=== PATIENT | female | born 1980 | race Caucasian/White ===

== ENCOUNTER 2024-08-01 17:22 | Emergency (ER) | payer OTHER, SELFPAY ==
[2024-08-01 17:31] VITALS: BP 148/87; PULSE 122; RESP 20; TEMP 38.1; O2SAT 97; BMI 27.3
--- NOTE | 2024-08-01 17:53 | DI.RAD.S_ITS ---
PROCEDURE: XR CHEST 2V INDICATIONS: cough fever TECHNIQUE: 2 views of the chest were acquired. COMPARISON: None. FINDINGS: Surgical changes and devices: None. Lungs and pleura: Lungs are clear. No pleural effusions or pneumothorax. Mediastinum: Mediastinal contours are normal. Heart size is normal. Bones and chest wall: No suspicious bony abnormalities. Soft tissues appear unremarkable. IMPRESSION: No acute cardiopulmonary abnormality is seen. Approved by: Lv Tam M.D. on 08/01/2024 at 18:18
[2024-08-01 18:00] VITALS: TEMP 38.1
[2024-08-01] MEDS: ACETAMINOPHEN 325 MG TABLET 975 MG PO (18:00)
[2024-08-01 18:09] VITALS: BP 136/82; PULSE 104; RESP 18; TEMP 36.7; O2SAT 97
--- NOTE | 2024-08-01 18:14 | ED_ITS ---
HPI - URI/Sore Throat <Deanna Rebolledo PA-C - Last Filed: 08/01/24 20:25> General Chief Complaint: Upper Respiratory Symptoms Stated Complaint: 102.9 fever, chills, dry cough, dizziness, rpd HB Time Seen by Provider: 08/01/24 17:52 Source: patient Mode of arrival: Wheelchair History of Present Illness HPI Narrative: Ms. Gallardo is a pleasant 43-year-old female with no reported past medical history who presents to the emergency department for cough, fevers, chills, body aches x3 days. Patient was recently traveling to [facility]. On she developed headache, fevers and chills and a sore throat. The sore throat has since resolved but now she has having an extremely dry frequent cough. She was up all night coughing. She went to the walk-in clinic as soon as she got back home to [place] and they sent her to the emergency department after giving her ibuprofen as she was tachycardic and had a fever. This time she states that she is feeling better, body aches improving, fever broke. She denies any chest pain, shortness of breath, difficulty with a deep breath, phlegm production, abdominal pain, nausea, vomiting, diarrhea, dysuria. Related Data Previous Rx's Medication Instructions Recorded benzonatate 200 mg capsule 200 mg PO BID-TID PRN cough #20 08/01/24 caps Allergies Allergy/AdvReac Type Severity Reaction Status Date / Time Penicillins Allergy Anaphylaxis Verified 08/01/24 17:31 Review of Systems <Deanna Rebolledo PA-C - Last Filed: 08/01/24 20:25> Review of Systems ROS Unobtainable: All systems reviewed & are unremarkable except as noted in HPI and below Patient History <Deanna Rebolledo PA-C - Last Filed: 08/01/24 20:25> Social History Smoking Status: Never smoker Smoking Status: Never smoker Exam <Deanna Rebolledo PA-C - Last Filed: 08/01/24 20:25> Narrative Exam Narrative: GENERAL: 43 year old patient appears stated age. Well-developed patient, in no acute distress. HEAD: Atraumatic. Normocephalic. EYES: PERRL. Extraocular motions intact. No scleral icterus. No injection or drainage. ENT: Clear ear canals and TMs bilaterally, no mastoid tenderness. Nose without bleeding, purulent drainage. Throat without erythema, tonsillar hypertrophy or exudate. Airway patent. NECK: Trachea midline. Cervical ROM intact. CARDIOVASCULAR: Regular rate and rhythm. RESPIRATORY: ?Occasional dry cough. Nonlabored respirations. ?Speaking in clear, full sentences. ?Clear to auscultation. Breath sounds equal bilaterally. No wheezes, rales, or rhonchi. ? GASTROINTESTINAL: Abdomen soft, non-tender, nondistended. EXTREMITIES: No edema or joint tenderness. NEURO: AOx3. ?Clear speech. ?Moves all 4 extremities appropriately. SKIN: No rash or erythema of visible areas Initial Vital Signs Initial Vital Signs: Vital Signs Temperature 100.6 F H 08/01/24 17:31 Pulse Rate 122 H 08/01/24 17:31 Respiratory Rate 20 08/01/24 17:31 Blood Pressure 148/87 H 08/01/24 17:31 Pulse Oximetry 97 08/01/24 17:31 Oxygen Delivery Method Room Air 08/01/24 17:31 <Bruno Tabares MD - Last Filed: 08/02/24 02:51> Initial Vital Signs Initial Vital Signs: Vital Signs Temperature 100.6 F H 08/01/24 17:31 Pulse Rate 122 H 08/01/24 17:31 Respiratory Rate 20 08/01/24 17:31 Blood Pressure 148/87 H 08/01/24 17:31 Pulse Oximetry 97 08/01/24 17:31 Oxygen Delivery Method Room Air 08/01/24 17:31 Course <Deanna Rebolledo PA-C - Last Filed: 08/01/24 20:25> Orders Ordered: ED Orders 08/01/24 17:53 XR chest 2V Stat Discontinued Medications Acetaminophen (Acetaminophen 325 Mg Tablet) 975 mg PO NOW ONE Stop: 08/01/24 17:54 Last Admin: 08/01/24 18:00 Dose: 975 mg Documented By: ELVER Benzonatate (Benzonatate 100 Mg Capsule) 200 mg PO NOW ONE Stop: 08/01/24 19:43 Last Admin: 08/01/24 19:46 Dose: 200 mg Documented By: ELVER Sodium Chloride (Normal Saline 0.9%) 1,000 mls @ 1,000 mls/hr IV BOLUS ONE Stop: 08/01/24 18:52 Last Admin: 08/01/24 18:31 Dose: Not Given Documented By: ELVER Vital Signs Vital signs: Vital Signs - 8 hr 08/01/24 19:15 Temperature 98.6 F <Bruno Tabares MD - Last Filed: 08/02/24 02:51> Orders Ordered: ED Orders 08/01/24 17:53 XR chest 2V Stat Discontinued Medications Acetaminophen (Acetaminophen 325 Mg Tablet) 975 mg PO NOW ONE Stop: 08/01/24 17:54 Last Admin: 08/01/24 18:00 Dose: 975 mg Documented By: ELVER Benzonatate (Benzonatate 100 Mg Capsule) 200 mg PO NOW ONE Stop: 08/01/24 19:43 Last Admin: 08/01/24 19:46 Dose: 200 mg Documented By: ELVER Sodium Chloride (Normal Saline 0.9%) 1,000 mls @ 1,000 mls/hr IV BOLUS ONE Stop: 08/01/24 18:52 Last Admin: 08/01/24 18:31 Dose: Not Given Documented By: ELVER Vital Signs Vital signs: Vital Signs - 8 hr 08/01/24 19:15 Temperature 98.6 F MDM - URI/Sore Throat <Deanna Rebolledo PA-C - Last Filed: 08/01/24 20:25> Medical Records Attestation: I reviewed the patient's medical records. Medical records narrative: Patient presented to the walk-in clinic today but was sent due to elevated heart rate and fever. Lab Data Labs: Lab Results 08/01/24 Range/Units 17:37 SARS-CoV-2 (PCR) Negative (Negative) Influenza A (RT-PCR) Flu a positive H (NEGATIVE) Influenza B (RT-PCR) Flu b negative (NEGATIVE) RSV (PCR) Negative (Negative) Imaging Data Chest x-ray: Radiologist's Impression: PROCEDURE: XR CHEST 2V INDICATIONS: cough fever TECHNIQUE: 2 views of the chest were acquired. COMPARISON: None. FINDINGS: Surgical changes and devices: None. Lungs and pleura: Lungs are clear. No pleural effusions or pneumothorax. Mediastinum: Mediastinal contours are normal. Heart size is normal. Bones and chest wall: No suspicious bony abnormalities. Soft tissues appear unremarkable. IMPRESSION: No acute cardiopulmonary abnormality is seen. MDM Narrative Medical decision making narrative: 43-year-old female with no reported past medical history who presents to the emergency department for cough, fevers, chills, body aches x3 days. She initially went to the walk-in clinic but was sent to the ER due to elevated heart rate and temperature. She did receive a dose of ibuprofen at the walk-in clinic before getting to the emergency department. Differential diagnosis includes but isn't limited to viral syndrome, pneumonia, bronchitis, etc. On exam patient is in no acute distress, nontoxic appearing. Initial triage vital signs revealed patient was febrile and tachycardic however by the time patient was back in the exam room her temperature had returned to normal, and her heart rate was in the normal range, reading 89 on her Apple watch during my exam. Appears that the ibuprofen that patient was given at the walk-in clinic started to kick in and patient states that she felt her ?fever break? and is feeling much better. Physical exam reveals lungs are clear to auscultation, clear posterior oropharynx and no signs of ear infection. Viral swab and chest x-ray was ordered revealing positive for influenza A and negative chest x-ray. Patient continues to feel better, her symptoms are consistent with influenza A she is responding appropriately to antipyretics therefore no indication for additional workup at this time. Discussed supportive care with rest, hydration, ibuprofen, acetaminophen. Patient was also treated with benzonatate for cough. Discussed strict ED return precautions and follow up with PCP. Patient verbalized understanding of all information is agreement with the plan. She is stable for discharge home. <Bruno Tabares MD - Last Filed: 08/02/24 02:51> Lab Data Labs: Lab Results 08/01/24 Range/Units 17:37 SARS-CoV-2 (PCR) Negative (Negative) Influenza A (RT-PCR) Flu a positive H (NEGATIVE) Influenza B (RT-PCR) Flu b negative (NEGATIVE) RSV (PCR) Negative (Negative) Discharge Plan Departure Patient Disposition: Home Clinical Impression: Influenza A URI (upper respiratory infection) Qualifiers: URI type: acute nasopharyngitis (common cold) Qualified Code(s): J00 - Acute nasopharyngitis [common cold] Instructions: DI for Influenza -- Adult Activity Restrictions/Additional Instructions: Dear Ms. Gallardo, Thank you for coming to the emergency department. Today you tested positive for influenza A. Your chest x-ray was negative for pneumonia or any abnormalities. Please rest, increase hydration, use ibuprofen and acetaminophen as needed for pain/body aches/fevers, in addition to the prescription cough medicine. Please take Ibuprofen (Motrin/Advil) or Acetaminophen (Tylenol) for pain. These are available over the counter. You may take Ibuprofen 600 mg every 8 hours with food for pain. You may also take Acetaminophen 650 mg every 4-6 hours for pain. Do not exceed 3000 mg of Tylenol a day as this can cause liver damage. Do not drink alcohol with either of these medications. Please follow up with your primary care doctor within the next 2-3 days for ER follow-up. (If you do not have a PCP you can call [phone]. ?to schedule an appointment with an [facility] Primary Care Provider) IF YOU DEVELOP ANY NEW OR WORSENING SYMPTOMS, RETURN TO THE ER! Please read the attached instructions, they highlight more specific treatments and interventions for you at home. Thank you for letting me participate in your care, Deanna Rebolledo PA-C Prescriptions: New benzonatate 200 mg capsule 200 mg PO BID-TID PRN (Reason: cough) Qty: 20 0RF Referrals: Hollie Arreola PA-C [Primary Care Provider] - Stand Alone Forms: Patient Portal/API/Survey, Work Release Note ED Sign-out <Bruno Tabares MD - Last Filed: 08/02/24 02:51> Cosign ED Attending Raj Attestation: I was immediately available in the department for consultation. This documentation has been reviewed and I agree with assessment and plan. Supervised by Bruno Tabares MD
[2024-08-01 18:20] LABS: Influenza A - CEPHEID Flu A POSITIVE (NEGATIVE); Influenza B - CEPHEID Flu B NEGATIVE (NEGATIVE); Respiratory Syncytial Virus Negative (Negative)
[2024-08-01 18:25] LABS: COVID-19 CEPHEID 4-PLEX PCR Negative (Negative)
[2024-08-01 19:15] VITALS: TEMP 37
[2024-08-01] MEDS: BENZONATATE 100 MG CAPSULE 200 MG PO (19:46)
== END 2024-08-01 19:57 | disposition home or self-care (01) ==
PROVIDERS: Emergency Medicine; Emergency Provider Physician Assistant; PCP Physician Assistant
DX: J10.1 Influenza due to other identified influenza virus with other respiratory manifestations (principal)
CPT/HCPCS: 0241U; 71046; 99283